=== PATIENT | male | born 1945 | race Caucasian/White ===

== ENCOUNTER 2020-01-01 11:49 | Observation (INO) | payer MEDICARE ==
[~2020-01-01 11:49] MED LIST: LACTATED RINGERS 1,000 ML IV SCH; MIDAZOLAM 2 MG/2 ML INJ IV NR
[2020-01-01] MEDS ORDERED: ceFAZolin/STERILE WATER 2 GM/20 ML SYRINGE IV NR (12:26)
[2020-01-01] MEDS ORDERED: GENTAMICIN 160 MG in SODIUM CHLORIDE 0.9% 100 ML IV NR (12:31)
[2020-01-01] MEDS ORDERED: HYDROmorphone 1 MG/1 ML INJ IV PRN (12:34)
--- NOTE | 2020-01-01 12:34 | Anesthesia Consultation ---
Anesthesia Consult and Med Hx Date of service: 01/01/20 - Airway Anesthetic Teeth Evaluation: Dentures (full upper and lower) ROM Head & Neck: Adequate Mental/Hyoid Distance: Adequate Mallampati Class: Class II Intubation Access Assessment: Probably Good - Pulmonary Exam CTA: Yes - Cardiac Exam Cardiac Exam: RRR - Pre-Operative Health Status ASA Pre-Surgery Classification: ASA3 Proposed Anesthetic Plan: General - Pulmonary Hx Smoking: Yes (quit 25yrs ago) Hx Respiratory Symptoms: No Hx Sleep Apnea: Yes (compliant with CPAP) - Cardiovascular System Hx Hypertension: Yes (took antihypertensives this morning) Hx Heart Attack/AMI: No Hx Percutaneous Transluminal Coronary Angioplasty (PTCA): No Hx Cardia Arrhythmia: No - Central Nervous System CVA: No Hx Psychiatric Problems: No - Gastrointestinal Hx Gastroesophageal Reflux Disease: Yes (well controlled. Took pantoprazole this morning.) - Endocrine Hx Renal Disease: No Hx Liver Disease: No Hx Insulin Dependent Diabetes: No Hx Non-Insulin Dependent Diabetes: No Hx Thyroid Disease: No - Other Systems Hx Obesity: Yes (BMI 34) - Additional Comments Anesthesia Medical History Comments: No hx anesthetic complications.
--- NOTE | 2020-01-01 12:34 | Anesthesia Day of Surgery ---
Anesthesia Day of Surgery - Day of Surgery Patient Examined: Yes Patient H&P Reviewed: Yes Patient is NPO: Yes
[2020-01-01 13:16] LABS: Hematocrit 45.2 % (35.5-45.6); Hemoglobin 15.3 gm/dl (11.8-15.2); Mean Corpuscular HGB Conc 34 % (32-34); Mean Corpuscular Volume 93 fl (84-94); Platelet Count 133 K/mm3 (140-440); Red Blood Count 4.86 M/mm3 (3.65-5.03); Red Cell Distribution Width 13.6 % (13.2-15.2)
[2020-01-01 13:31] LABS: Alanine Aminotransferase 38 units/L (7-56); Albumin 4.2 g/dL (3.9-5); BUN/Creatinine Ratio 16; Blood Urea Nitrogen 14 mg/dL (9-20); Calcium 9.2 mg/dL (8.4-10.2); Hemolysis Index 9
[2020-01-01] MEDS ORDERED: NEOMY 40 MG/POLYMYXIN B 200,000 UNITS/ML (GU) AMPULE IR ONE ×4 (13:43→15:00)
[2020-01-01] MEDS ORDERED: fentaNYL 100 MCG/2 ML INJ ONE ×2 (13:43→15:28)
[2020-01-01] MEDS ORDERED: propofoL 200 MG/20 ML VIAL IV ONE ×2 (13:44)
[2020-01-01] MEDS ORDERED: SODIUM CHLORIDE 0.9% IRR 1,500 ML BOTTLE IR ONE (14:38)
[2020-01-01] MEDS ORDERED: SUCCINYLCHOLINE CHLORIDE 200 MG/10 ML INJ MDV ONE (15:30)
[2020-01-01] MEDS ORDERED: ROCURONIUM 50 MG/5 ML INJ IV ONE (15:30)
[2020-01-01] MEDS ORDERED: PHENYLEPHRINE/NS 1,000 MCG/10 ML SYRINGE (OR USE) IV ONE (15:39)
[2020-01-01] MEDS ORDERED: ONDANSETRON 4 MG/2 ML INJ ONE (15:39)
[2020-01-01] MEDS ORDERED: ACETAMINOPHEN 325 MG TAB PO PRN (15:52)
[2020-01-01] MEDS ORDERED: ONDANSETRON 4 MG ODT TAB PO PRN (15:52)
[2020-01-01] MEDS ORDERED: NALOXONE 0.4 MG/1 ML INJ IV PRN (15:52)
[2020-01-01] MEDS ORDERED: MORPHINE 2 MG/1 ML INJ IV PRN (15:52)
--- NOTE | 2020-01-01 15:52 | Post Operative Note ---
Date of procedure: 01/01/20 Pre-op diagnosis: ed Post-op diagnosis: same Findings: ed Procedure: insertion ipp Anesthesia: GETA Surgeon: ROMEL MENDIOLA Estimated blood loss: 50-100ml Pathology: none Condition: stable Disposition: PACU
[2020-01-01] MEDS ORDERED: NEOSTIGMINE 10MG/10 ML INJ MDV ONE (15:56)
[2020-01-01] MEDS ORDERED: GLYCOPYRROLATE 0.4 MG/2 ML INJ ONE (15:56)
[2020-01-01] MEDS ORDERED: ZOLPIDEM 5 MG TAB PO PRN (15:56)
[2020-01-01] MEDS ORDERED: D5W/0.45% NACL/KCL 20 MEQ 20 MEQ/1,000 ML BAG IV SCH (16:00)
--- NOTE | 2020-01-01 16:22 | Operative Report ---
PREOPERATIVE DIAGNOSIS: Organic erectile dysfunction. POSTOPERATIVE DIAGNOSIS: Organic erectile dysfunction. PROCEDURE: Insertion of penile implant 3-piece. SURGEON: Dr. Ryan. ANESTHESIA: General. FINDINGS: This is a gentleman with a very significant progressive erectile dysfunction. He tried all kinds of devices, injections, and pills, which did not work. He now presents for an implant. All risks and implications discussed including bleeding, infection, malfunction, pain, discomfort, curvature. DESCRIPTION OF PROCEDURE: The patient was brought to the operating table and placed on the operating table. Following the induction of anesthesia, placed in supine position, prepped and draped in usual sterile fashion. A full scrub and prep were carried out. Valdez catheter was placed. We placed the drape around the penis and scrotum, and after the timeout, a transverse incision made over the penoscrotal junction. Both corpora were identified. A retractor was placed and stay sutures were placed in both corpora. Corporotomies were made. Dilatation was carried out on each side without difficulty from 7-[place]gar to 13. We got all the way up to the tip of the glans symmetrical. It measured 20 on the right and 19-19-1/2 on the left. At this point, we were going to place a 3-piece. The external ring was identified. It was a little weak, so was easily to get access to the retropubic space and the reservoir was placed. We put in a 100, then backed it out to about 90. There was no back pressure. At this point, the wound was irrigated throughout the case with antibiotic solution. We used 20 on each side, 18 with two rear tips on each side and excellent cosmetic result was obtained. Corporotomies were then closed. Wound was irrigated. At this point, the connection was made after we developed the pump, and we refilled and left it partially inflated. The patient tolerated the procedure well. A dressing was applied after closure was accomplished with interrupted and running 3-0 to cover the tubing and then the skin. No significant bleeding. The Valdez will be left and will be removed in the morning, brought to recovery in stable condition. ESTIMATED BLOOD LOSS: 50 mL. JOB# [id number] JUDY/CHRISTEL
[2020-01-01] MEDS: VANCOMYCIN/NS 1 GM/250 ML 1 GM/250 ML BAG IV SCH (16:55)
--- NOTE | 2020-01-01 17:03 | Post Anesthesia Evaluation ---
- Post Anesthesia Evaluation Patient Participated: Yes Airway Patent: Yes Stable Respiratory Function: Yes Nausea/Vomiting: No Temp > 96.8F: Yes Pain Manageable: Yes Adequeate Hydration: Yes Anesthesia Complications: No
[2020-01-01] MEDS: HYDROcodone/ACETAMINOPHEN 5-325 MG TAB PO PRN (20:32)
[2020-01-01] MEDS: ceFAZolin/NS 1 GM/50 ML 1 GM/50 ML BAG IV SCH (22:36)
[2020-01-01] MEDS: FAMOTIDINE 20 MG/2 ML INJ IV SCH (22:49)
[2020-01-02 02:23] VITALS: BP 138/70
[2020-01-02] MEDS: VANCOMYCIN/NS 1 GM/250 ML 1 GM/250 ML BAG IV SCH (03:59)
[2020-01-02] MEDS: HYDROcodone/ACETAMINOPHEN 5-325 MG TAB PO PRN (07:27)
[2020-01-02] MEDS ORDERED: diphenhydrAMINE 50 MG/ML VIAL IV ONE (07:30)
[2020-01-02] MEDS: ceFAZolin/NS 1 GM/50 ML 1 GM/50 ML BAG IV SCH (07:32)
[2020-01-02] MEDS ORDERED: HYPROMELLOSE 0.5% OPHTH SOLN 15 ML OU PRN (08:00)
[2020-01-02] MEDS: FAMOTIDINE 20 MG/2 ML INJ IV SCH (11:40)
--- NOTE | 2020-01-02 13:34 | Progress Note ---
Assessment and Plan looks great no edema voiding home Subjective Date of service: 01/02/20 Objective - Constitutional Vitals: Vital Signs - 12hr 01/02/20 01/02/20 02:22 08:23 Temperature 98.0 F Pulse Rate 59 L Respiratory 17 Rate Blood Pressure 138/70 [Left] O2 Sat by Pulse 96 96 Oximetry General appearance: Present: no acute distress - Neck Neck: supple - Respiratory Respiratory effort: normal Extremities: no ischemia - Gastrointestinal General gastrointestinal: Present: soft, non-tender - Labs CBC & Chem 7: 01/01/20 12:50 01/01/20 12:50 Medications & Allergies - Medications Allergies/Adverse Reactions: Allergies ALPHA GAL Allergy (Uncoded 12/26/19 16:38) Anaphylaxis 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 Home Medications: Home Medications Medication Instructions Recorded Confirmed Last Taken Type Aspirin [Adult Aspirin] 81 mg PO DAILY 12/26/19 01/01/20 12/25/19 08:00 History AtorvaSTATin [Lipitor] 40 mg PO QHS 12/26/19 01/01/20 12/31/19 20:00 History EPINEPHrine [Epinephrine] 0.15 mg IJ PRN PRN 12/26/19 12/26/19 Unknown History Losartan [Cozaar] 50 mg PO QDAY 12/26/19 01/01/20 01/01/20 08:00 History Multivit-Mins/Iron/Folic/Lycop 1 each PO DAILY 12/26/19 01/01/20 12/31/19 08:00 History [Centrum Ultra Men's Tablet] Pantoprazole [Protonix] 40 mg PO QDAY 12/26/19 01/01/20 01/01/20 08:00 History atenoloL [Tenormin] 25 mg PO DAILY 12/26/19 01/01/20 01/01/20 08:00 History Active Medications: Generic Name Dose Route Start Last Admin Trade Name Freq PRN Reason Stop Dose Admin Acetaminophen 650 mg 01/01/20 15:52 Tylenol PO Q4H PRN Pain MILD(1-3)/Fever >100.5/GRIFFITH Hydrocodone Bitart/Acetaminophen 2 each 01/01/20 15:52 01/02/20 07:27 Baxter 5/325 PO 2 each Q6H PRN Administration Pain, Moderate (4-6) Artificial Tears 2 drops 01/02/20 08:00 01/02/20 11:44 Isopto Tears 0.5% OU 2 drops Q4H PRN Administration Dry Eye(s) Famotidine 20 mg 01/01/20 22:00 01/02/20 11:40 Pepcid IV 20 mg BID YANET Administration Potassium Chloride/Dextrose/Sod Cl 20 meq in 1,000 mls @ 125 mls/hr 01/01/20 16:00 01/02/20 02:03 D5w/0.45% Nacl/Kcl 20 Meq IV 125 mls/hr DIRECT YANET Administration Cefazolin Sodium 1 gm in 50 mls @ 100 mls/hr 01/01/20 23:00 01/02/20 07:32 Ancef/Ns 1 Gm/50 Ml IV 01/02/20 23:29 Not Given Q8H YANET Protocol Morphine Sulfate 2 mg 01/01/20 15:52 01/02/20 02:00 Morphine IV 2 mg Q4H PRN Administration Pain, Moderate (4-6) Naloxone HCl 0.1 mg 01/01/20 15:52 Naloxone IV Q2MIN PRN Res Rate </= 8 or 02 SAT < 92% Ondansetron HCl 4 mg 01/01/20 15:52 Zofran Odt PO Q8H PRN Nausea And Vomiting Zolpidem Tartrate 5 mg 01/01/20 15:56 Ambien PO QHS PRN Sleep
--- NOTE | 2020-01-02 13:34 | Discharge Summary ---
Short Stay Discharge Plan Activity: other (no straining ) Weight Bearing Status: Full Weight Bearing Diet: low fat, low cholesterol, low salt Wound: open to air Special Instructions: other (keep dry ) Durable Medical Equipment Needed Upon Discharge: other (use ice 24 hrs ) Follow up with: PRIMARY CARE,MD [Primary Care Provider] - 7 Days ROMEL MENDIOLA MD [Staff Physician] - 7 Days
== END 2020-01-02 14:00 | disposition home or self-care (01) ==
LOC: OR 11:49 → 3B-SURG 16:37
PROVIDERS: ADMIT Urology; ATTEND Urology
DX: N52.8 Other male erectile dysfunction (principal); Z20.828 Contact with and (suspected) exposure to other viral communicable diseases; Z79.82 Long term (current) use of aspirin; Z79.899 Other long term (current) drug therapy; Z88.8 Allergy status to other drugs, medicaments and biological substances
CPT/HCPCS: 36415; 54405; 80053; 85027; 94660; 94760; 96361; 96365; 96366; 96367; 96375; 96376; C1813; G0378; J0330; J0690; J1170; J1200; J1580; J2250; J2270; J2370; J2405; J2704; J2710; J3010; J3370; J7120; U0003